=== PATIENT | male | born 1990 | race Caucasian/White ===

== ENCOUNTER 2017-02-24 22:17 | Emergency (ER) | payer SELFPAY ==
[2017-02-24] MEDS ORDERED: Diphtheria,Pertussis(Acell),Tetanus Vaccine 0.5 ML Syringe IM ONE (22:42)
[2017-02-24] MEDS ORDERED: Ketorolac 60 MG/2 ML SDV IM ONE (22:42)
--- NOTE | 2017-02-24 22:50 | EDM.PDOC ---
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 Patient states he typically gets skin lesions from exposure to different substances in his line of work. He Multiple red areas on his skin which are not warm and have no drainage or wound. He states this is typical for his job and is nothing new. He has an abrasion from his boot rubbing on his left Patient states his feet are always damp and sometimes they get frankly wet. He wears the same wet socks all day and then drive home a long distance Review of systems: As per history of present illness and below otherwise all systems reviewed and negative. Past medical history: As per history of present illness and as reviewed below otherwise noncontributory. Surgical history: As per history of present illness and as reviewed below otherwise noncontributory. Social history: No reported history of drug or alcohol abuse. Family history: As per history of present illness and as reviewed below otherwise noncontributory. Physical exam: Alert well-appearing no acute distress. Minimal soft tissue tenderness left calf with no erythema warmth fluctuance or crepitusleg medial aspect. This was concerned because his calf is slightly sore and he had a little bit of edema of his legs where his sock bilaterally indented the skin There is a small scab but no erythema warmth fluctuance or crepitus. Calf is minimally tender with soft compartments neurovascularly intact distally. Small amount of skin breakdown the dorsum of his pale foot consistent with very mild trench foot. HEENT: Normocephalic, atraumatic, pupils normal and symmetrical, supple neck, no meningismus, normal color Lungs: Normal and symmetrical chest wall excursion bilateral with no tachypnea or increased work of breathing, grossly normal chest exam Heart: No tachycardia in triage Abdomen: Normal-appearing, nondistended, no visible mass or asymmetry Pelvis: Normal-appearing Genitourinary: Deferred Rectal exam: Deferred Extremities: Atraumatic, normal use and range of motion, no visible evidence of gross neurovascular compromise Neuro: Awake, alert, oriented. Normal and appropriate mental status. Cranial nerves grossly unremarkable. Motor function normal. Nonfocal neurologic exam. Diagnostics: [Doppler left lower extremity negative for DVT] Therapeutics: [Ibuprofen given by mouth and tetanus administered] Impression: [Abrasion Trench foot Lower extremity edema Calf pain] Plan: [Signs and symptoms consistent with mild edema. No clinical evidence of CHF. Unremarkable leg with minimal soft tissue tenderness however negative for DVT by Doppler exam. Small amount of skin breakdown which is superficial without signs of cellulitis. Tetanus updated because of abrasion on left leg. Patient aware to air out feet and wear breathable socks and boots. No further workup or treatment indicated patient agrees with outpatient follow-up and strict return precautions given] Definitive disposition and diagnosis as appropriate pending reevaluation and review of above. - Related Data Allergies Allergy/AdvReac Type Severity Reaction Status Date / Time Penicillins Allergy Other Verified 02/24/17 22:31 Home Meds: Home Meds . 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 asthma but never really had a problem with it" - Infectious Disease History Infectious Disease History: Reports: Chicken Pox - Past Surgical History Respiratory Surgical History: Reports: None Social & Family History - Family History Family Medical History: Noncontributory - Tobacco Use Smoking Status *Q: Current Every Day Smoker Years of Tobacco use: 10 Packs/Tins Daily: 1 - Caffeine Use Caffeine Use: Reports: Coffee, Energy Drinks, Soda Caffeine Use Comment: 1 drink each per day - Recreational Drug Use Recreational Drug Use: No ED ROS GENERAL - Review of Systems Review Of Systems: See Below (History of present illness) ED EXAM, SKIN/RASH Exam: See Below (History of present illness) Course - Vital Signs Last Recorded V/S: Last Vital Signs Temp 36.8 C 02/24/17 22:27 Pulse 100 02/24/17 22:27 Resp 18 02/24/17 22:27 BP 149/82 H 02/24/17 22:27 Pulse Ox 97 02/24/17 22:27 - Orders/Labs/Meds Orders: Active Orders 24 hr Category Date Time Status Vaccines to be Administered [RC] PER UNIT ROUTINE Care 02/24/17 22:42 Ordered Venous Doppler Lwr Ext Lt [US] Stat Exams 02/24/17 22:40 Ordered Diphth,Pertuss(Acell),Tet Vac [Adacel] Med 02/24/17 22:42 Once 0.5 ml IM .ONCE ONE Meds: Medications Discontinued Medications Generic Name Dose Route Start Last Admin Trade Name Cyndy PRN Reason Stop Dose Admin Ketorolac Tromethamine 60 mg 02/24/17 22:42 Toradol IM 02/24/17 22:43 ONETIME ONE Departure - Departure Time of Disposition: 23:37 Disposition: Home, Self-Care 01 Condition: Good Clinical Impression: Leg pain, Lower leg edema, Maceration of skin - Discharge Information Referrals: PCP,None [Primary Care Provider] - Forms: ED Department Discharge Additional Instructions: You do not have any blood clot in your leg today. You have multiple skin abrasions from your strenuous job. You also have some skin breakdown on your left foot from the foot being moist constantly for an extended period of time inside your boot. This is called trench foot and it can range from very mild cases like your situation to severe as people suffered from during the [place] War when their feet were constantly completely wet. Wear breathable socks such as "smart wool "socks. Consider changing your socks residential through the day or after the become wet from sweats. Soon as possible after work remove your boots and let your feet air out and dry. This is a good idea to do soon as you get in your car or truck on the way home. Your tetanus has been updated and this also contains pertussis coverage. Ibuprofen and Tylenol as needed for soreness. Strive for a low-salt diet to avoid edema of the legs and elevate them above your heart when ever possible to minimize any swelling and follow-up with your Dr. tomorrow and return immediately for new severe or worsening symptoms - My Orders Last 24 Hours: My Active Orders 02/24/17 22:40 Venous Doppler Lwr Ext Lt [US] Stat 02/24/17 22:42 Vaccines to be Administered [RC] PER UNIT ROUTINE Diphth,Pertuss(Acell),Tet Vac [Adacel] 0.5 ml IM .ONCE ONE - Assessment/Plan Last 24 Hours: My Active Orders 02/24/17 22:40 Venous Doppler Lwr Ext Lt [US] Stat 02/24/17 22:42 Vaccines to be Administered [RC] PER UNIT ROUTINE Diphth,Pertuss(Acell),Tet Vac [Adacel] 0.5 ml IM .ONCE ONE
[2017-02-25 00:36] VITALS: BP 127/80
--- NOTE | 2017-02-27 10:07 | US ---
EXAM DATE: 02/24/17 PATIENT'S AGE: 26 Patient: FRANK YU Facility: [place], [place] Site . Site : 1990 Study: US Extremity Venous LT [id number]/4/2017 11:32:31 PM Ordering Physician: Akbar Anderson Final Report: INDICATION: LT LOWER LEG PAIN & SWELLING TECHNIQUE: Ultrasound venous duplex lower left extremity. Compression venous exam was performed using winters-scale, color Doppler, and spectral Doppler analysis. COMPARISON: None FINDINGS: Sonographic imaging demonstrates the left common femoral, deep femoral, superficial femoral, popliteal, posterior tibial and greater saphenous and the contralateral right common femoral veins to be fully compressible with normal color Doppler blood flow. IMPRESSION: No evidence of deep venous thrombosis within the left lower extremity. Dictated by Az Arroyo MD @ 02/24/2017 11:47:48 PM Dictated by: Az Arroyo MD @ 02/24/2017 23:47:55 (Electronic Signature) Report Signed by Proxy. ROC[facility] HOSPITALHerbie
== END 2017-02-25 00:05 | disposition home or self-care (01) ==
LOC: MW.ED 22:17
DX: S80.812A Abrasion, left lower leg, initial encounter (principal); F17.210 Nicotine dependence, cigarettes, uncomplicated; T69.022A Immersion foot, left foot, initial encounter; Z88.0 Allergy status to penicillin; J45.909 Unspecified asthma, uncomplicated; X58.XXXA Exposure to other specified factors, initial encounter; Z23 Encounter for immunization
CPT/HCPCS: 90471; 90715; 93971; 96372; 99283; J1885

== ENCOUNTER 2018-01-14 13:45 | Emergency (ER) | payer BC ==
--- NOTE | 2018-01-14 14:01 | EDM.PDOC ---
ED HPI GENERAL MEDICAL PROBLEM - General Chief Complaint: Skin Complaint Stated Complaint: LUMP Time Seen by Provider: 01/14/18 13:59 Source of Information: Reports: Patient History Limitations: Reports: No Limitations - History of Present Illness INITIAL COMMENTS - FREE TEXT/NARRATIVE: HISTORY AND PHYSICAL: []27-year-old male presenting with a "bump" on the francois of his left leg History of Present Illness: []The patient states the pain started today The patient has had a cold for the last week Denies headaches denies chest pain denies any other symptoms Review of Systems: As per history of present illness and below otherwise all systems reviewed and negative. Past medical history: As per history of present illness and as reviewed below otherwise noncontributory. Surgical history: As per history of present illness and as reviewed below otherwise noncontributory. Social history: No reported history of drug or alcohol abuse. Family history: As per history of present illness and as reviewed below otherwise noncontributory. Physical exam: Alert and oriented male answering questions appropriately in full sentences without any shortness of breath. He is nontoxic in appearance. HEENT: Atraumatic, normocehpalic, pupils reactive, negative for conjunctival pallor or scleral icterus, mucous membranes moist, throat clear, neck supple, nontender, trachea midline. Some nasal congestion noted when he is speaking Lungs: Clear to auscultation, breath sounds equal bilaterally, chest non tender. Heart: S1S2, regular, negative for clicks, rubs, or JVD. Abdomen: Soft, nondistended, nontender. Negative for masses or hepatossplenmegaly. Negative for costovertebral tenderness. Pelvis: Stable nontender. Genitourinary: Deferred. Rectal: Deferred Extremities:, negative for cords or calf pain. There is a 3 cm erythematous area with the center more reddened edema is present throughout the erythema. Neurovascular unremarkable. Neuro: Awake, alert, oriented. Cranial nerves II through XII unremarkable. Cerebellum unremarkable. Motor and sensory unremarkable throughout. Exam nonfocal. Discussed with the patient the red area looks like a spider bite. Diagnostics: [] Therapeutics: [] Impression: []Spider bite Plan: []Discharge Levaquin antibiotic 5 mg daily 7 Hydrocortisone cream 3 times a day Follow UP with your primary care provider as needed Return to emergency department as directed and discussed Definitive disposition and diagnosis as appropriate pending reevaluation and review of above. Onset: Sudden Duration: Getting Worse Location: Reports: Lower Extremity, Left Quality: Reports: Throbbing Severity: Moderate Improves with: Reports: None Worsens with: Reports: None Associated Symptoms: Reports: Other (has had a cold for the last week) left leg Pain Score (Numeric/FACES): 8 - Related Data Allergies Allergy/AdvReac Type Severity Reaction Status Date / Time Penicillins Allergy Other Verified 01/14/18 13:49 Home Meds: Home Meds Hydrocortisone [Hydrocortisone 2.5% Crm] 30 gm TOP TID #1 tube 01/14/18 [Rx] Levofloxacin [Levaquin] 500 mg PO DAILY #7 tab 01/14/18 [Rx] Past Medical History - Past Health History Medical/Surgical History: Denies Medical/Surgical History HEENT History: Reports: None Cardiovascular History: Reports: None Respiratory History: Reports: Asthma Other Respiratory History: pt states "i was born with asthma but never really had a problem with it" Gastrointestinal History: Reports: None Genitourinary History: Reports: None Musculoskeletal History: Reports: None Neurological History: Reports: None Psychiatric History: Reports: None Endocrine/Metabolic History: Reports: None Hematologic History: Reports: None Immunologic History: Reports: None Oncologic (Cancer) History: Reports: None Dermatologic History: Reports: None - Infectious Disease History Infectious Disease History: Reports: Chicken Pox - Past Surgical History Head Surgeries/Procedures: Reports: None HEENT Surgical History: Reports: None Cardiovascular Surgical History: Reports: None Respiratory Surgical History: Reports: None GI Surgical History: Reports: None Male Surgical History: Reports: None Endocrine Surgical History: Reports: None Neurological Surgical History: Reports: None Musculoskeletal Surgical History: Reports: None Oncologic Surgical History: Reports: None Dermatological Surgical History: Reports: None Social & Family History - Family History Family Medical History: Noncontributory - Tobacco Use Smoking Status *Q: Current Every Day Smoker Years of Tobacco use: 10 Packs/Tins Daily: 1 - Caffeine Use Caffeine Use: Reports: Energy Drinks Caffeine Use Comment: 1 drink each per day - Recreational Drug Use Recreational Drug Use: No ED ROS GENERAL - Review of Systems Review Of Systems: ROS reveals no pertinent complaints other than HPI. ED EXAM, SKIN/RASH Exam: See Below (see dictation) Course - Vital Signs Last Recorded V/S: Last Vital Signs Temp 37.3 C 01/14/18 13:49 Pulse 127 H 01/14/18 13:49 Resp 18 01/14/18 13:49 BP 135/85 01/14/18 13:49 Pulse Ox 98 01/14/18 13:49 Departure - Departure Time of Disposition: 14:06 Disposition: Home, Self-Care 01 Condition: Good Clinical Impression: Spider bite Qualifiers: Encounter type: initial encounter Injury intent: accidental or unintentional Qualified Code(s): T63.301A - Toxic effect of unspecified spider venom, accidental (unintentional), initial encounter Cellulitis Qualifiers: Site of cellulitis: extremity Site of cellulitis of extremity: lower extremity - Discharge Information Prescriptions: Hydrocortisone [Hydrocortisone 2.5% Crm] 30 gm TOP TID #1 tube Levofloxacin [Levaquin] 500 mg PO DAILY #7 tab Referrals: PCP,None [Primary Care Provider] - Forms: ED Department Discharge Additional Instructions: The following information is given to patients seen in the emergency department who are being discharged to home. This information is to outline your options for follow-up care. We provide all patients seen in our emergency department with a follow-up referral. The need for follow-up, as well as the timing and circumstances, are variable depending upon the specifics of your emergency department visit. If you don't have a primary care physician on staff, we will provide you with a referral. We always advise you to contact your personal physician following an emergency department visit to inform them of the circumstance of the visit and for follow-up with them and/or the need for any referrals to a consulting specialist. The emergency department will also refer you to a specialist when appropriate. This referral assures that you have the opportunity for followup care with a specialist. All of these measure are taken in an effort to provide you with optimal care, which includes your followup. Under all circumstances we always encourage you to contact your private physician who remains a resource for coordinating your care. When calling for followup care, please make the office aware that this follow-up is from your recent emergency room visit. If for any reason you are refused follow-up, please contact the [facility] emergency department at and asked to speak to the emergency department charge nurse. You have a spider bite that is causing a cellulitis to your like Antibiotic has been sent to [facility] pharmacy Hydrocortisone cream has been sent to your pharmacy Follow-up with your primary care as needed Return to the emergency room should symptoms worsen
[2018-01-14 14:17] VITALS: BP 135/85
== END 2018-01-14 14:17 | disposition home or self-care (01) ==
LOC: MW.ED 13:45
DX: T63.301A Toxic effect of unspecified spider venom, accidental (unintentional), initial encounter (principal); L03.116 Cellulitis of left lower limb; J45.909 Unspecified asthma, uncomplicated; F17.210 Nicotine dependence, cigarettes, uncomplicated; Z88.0 Allergy status to penicillin; Z79.899 Other long term (current) drug therapy
CPT/HCPCS: 99283

== ENCOUNTER 2018-01-14 21:01 | Emergency (ER) | payer BC ==
[2018-01-14] MEDS ORDERED: Ketorolac 60 MG/2 ML SDV IM ONE (22:30)
--- NOTE | 2018-01-14 22:34 | EDM.PDOC ---
ED HPI GENERAL MEDICAL PROBLEM - General Chief Complaint: Lower Extremity Injury/Pain Stated Complaint: PAIN LT LEG/DIZZY Time Seen by Provider: 01/14/18 22:26 - History of Present Illness INITIAL COMMENTS - FREE TEXT/NARRATIVE: HISTORY AND PHYSICAL: History of present illness: The patient is a healthy 27-year-old male who presents for reevaluation of a reddened area on his left anterior francois that he was seen here earlier for about 2 PM. The patient says he was seen and evaluated and was placed on antibiotics and he has taken the Levaquin he was given. He is only taken one dose of Motrin for pain and he says that the pain is worsening and he is being lightheaded and woozy and not feeling like himself. He is not having fever chills chest pain shortness of breath abdominal pain nausea or vomiting but feels very anxious about this wound. He says that the redness is getting worse and the pain is getting worse. He was not given anything for the discomfort and his only taken one dose of ibuprofen. Patient denies any new injuries and is concerned. Review of systems: As per history of present illness and below otherwise all systems reviewed and negative. Past medical history: As per history of present illness and as reviewed below otherwise noncontributory. Surgical history: As per history of present illness and as reviewed below otherwise noncontributory. Social history: No reported history of drug or alcohol abuse. Family history: As per history of present illness and as reviewed below otherwise noncontributory. Physical exam: General: Well-developed well-nourished overweight man who is nontoxic and is somewhat anxious on my evaluation. His vitals are noted by me. HEENT: Atraumatic, normocephalic, negative for conjunctival pallor or scleral icterus, mucous membranes moist, throat clear, neck supple, nontender, trachea midline. Lungs: Clear to auscultation, breath sounds equal bilaterally, chest nontender. Heart: S1S2, regular rhythm slightly tachycardic rate on my evaluation no overt murmurs Abdomen: Soft, nondistended, nontender. NABS Pelvis: Stable nontender. Genitourinary: Deferred. Rectal: Deferred. Extremities: Atraumatic no palpable bony deformities and full range of motion of all extremities. At the anterior left francois there is a hand size area of erythema with a central area of induration where the original lesion was located. There is tenderness and warmth in this area but the calf compartment is soft and there is no streaking up the leg. There are no palpable bony deformities and no crepitus. There is no drainage or fluctuance from this area. The legs are negative for cords or calf pain. Neurovascular unremarkable. Neuro: Awake, alert, oriented. Cranial nerves II through XII unremarkable. Cerebellum unremarkable. Motor and sensory unremarkable throughout. Exam nonfocal. Diagnostics: X-ray left leg to rule out gas Therapeutics: Toradol I tried to impress upon the patient that the area will get more red for the next 12-24 hours until the antibiotics start getting into his system and he is only taken one dose. I will do a quick x-ray to rule out gas although clinically there is none to reassure him and will give him a dose of Toradol here. I will send him home with some Ultram that he can use for pain along with ibuprofen. Impression: Cellulitis left leg secondary to insect bite, reevaluation Definitive disposition and diagnosis as appropriate pending reevaluation and review of above. left leg Pain Score (Numeric/FACES): 10 - Related Data Allergies Allergy/AdvReac Type Severity Reaction Status Date / Time Penicillins Allergy Other Verified 01/14/18 22:01 Home Meds: Home Meds Hydrocortisone [Hydrocortisone 2.5% Crm] 30 gm TOP TID #1 tube 01/14/18 [Rx] Levofloxacin [Levaquin] 500 mg PO DAILY #7 tab 01/14/18 [Rx] Past Medical History - Past Health History Medical/Surgical History: Denies Medical/Surgical History HEENT History: Reports: None Cardiovascular History: Reports: None Respiratory History: Reports: Asthma Other Respiratory History: pt states "i was born with asthma but never really had a problem with it" Gastrointestinal History: Reports: None Genitourinary History: Reports: None Musculoskeletal History: Reports: None Neurological History: Reports: None Psychiatric History: Reports: None Endocrine/Metabolic History: Reports: None Hematologic History: Reports: None Immunologic History: Reports: None Oncologic (Cancer) History: Reports: None Dermatologic History: Reports: None - Infectious Disease History Infectious Disease History: Reports: Chicken Pox - Past Surgical History Head Surgeries/Procedures: Reports: None HEENT Surgical History: Reports: None Cardiovascular Surgical History: Reports: None Respiratory Surgical History: Reports: None GI Surgical History: Reports: None Male Surgical History: Reports: None Endocrine Surgical History: Reports: None Neurological Surgical History: Reports: None Musculoskeletal Surgical History: Reports: None Oncologic Surgical History: Reports: None Dermatological Surgical History: Reports: None Social & Family History - Family History Family Medical History: Noncontributory - Tobacco Use Smoking Status *Q: Current Every Day Smoker Years of Tobacco use: 10 Packs/Tins Daily: 1 - Caffeine Use Caffeine Use: Reports: Energy Drinks Caffeine Use Comment: 1 drink each per day - Recreational Drug Use Recreational Drug Use: No Review of Systems - Review of Systems Review Of Systems: ROS reveals no pertinent complaints other than HPI. ED EXAM, GENERAL - Physical Exam Exam: See Below (see dictation) Course - Vital Signs Last Recorded V/S: Last Vital Signs Temp 37.3 C 01/14/18 21:58 Pulse 114 H 01/14/18 21:58 Resp 18 01/14/18 21:58 BP 140/84 01/14/18 21:58 Pulse Ox 96 01/14/18 21:58 - Orders/Labs/Meds Orders: Active Orders 24 hr Category Date Time Status Tibia Fibula Lt [CR] Stat Exams 01/14/18 22:30 Taken Meds: Medications Discontinued Medications Generic Name Dose Route Start Last Admin Trade Name Cyndy PRN Reason Stop Dose Admin Ketorolac Tromethamine 60 mg 01/14/18 22:30 01/14/18 22:49 Toradol IM 01/14/18 22:31 60 mg ONETIME ONE Administration Departure - Departure Time of Disposition: 23:50 Disposition: Home, Self-Care 01 Condition: Good Clinical Impression: Encounter for evaluation of wound Cellulitis of leg Qualifiers: Laterality: left Qualified Code(s): L03.116 - Cellulitis of left lower limb - Discharge Information Referrals: PCP,None [Primary Care Provider] - Forms: ED Department Discharge Additional Instructions: The following information is given to patients seen in the emergency department who are being discharged to home. This information is to outline your options for follow-up care. We provide all patients seen in our emergency department with a follow-up referral. The need for follow-up, as well as the timing and circumstances, are variable depending upon the specifics of your emergency department visit. If you don't have a primary care physician on staff, we will provide you with a referral. We always advise you to contact your personal physician following an emergency department visit to inform them of the circumstance of the visit and for follow-up with them and/or the need for any referrals to a consulting specialist. The emergency department will also refer you to a specialist when appropriate. This referral assures that you have the opportunity for followup care with a specialist. All of these measure are taken in an effort to provide you with optimal care, which includes your followup. Under all circumstances we always encourage you to contact your private physician who remains a resource for coordinating your care. When calling for followup care, please make the office aware that this follow-up is from your recent emergency room visit. If for any reason you are refused follow-up, please contact the [facility] emergency department at and ask to speak to the emergency department charge nurse. [facility] Primary care- Internal Medicine [place] [address] Ice and elevate the area and please continue and finish the antibiotics were given earlier today. Use [id number] ibuprofen/Aleve as directed and use the Ultram as needed for sleep. Return to ER as needed and as discussed. Call and schedule a follow-up appointment - My Orders Last 24 Hours: My Active Orders 01/14/18 22:30 Tibia Fibula Lt [CR] Stat - Assessment/Plan Last 24 Hours: My Active Orders 01/14/18 22:30 Tibia Fibula Lt [CR] Stat
[2018-01-15 02:32] VITALS: BP 114/66
--- NOTE | 2018-01-15 17:02 | CR ---
EXAM DATE: 01/14/18 PATIENT'S AGE: 27 Patient: FRANK YU Facility: [place], [place] Site . Site : 1990 Study: XRay Extremity Left tib/fib [id number]/24/2018 11:11:54 PM Ordering Physician: Cheryl Gomez Final Report: INDICATION: Leg swelling and redness TECHNIQUE: Tibia-fibula radiograph 4 views left COMPARISON: None FINDINGS: Bones: No acute fractures or aggressive bone lesions are identified. Joints: The visualized knee and ankle joints are unremarkable. No significant joint effusion is seen. Soft tissue: No soft tissue emphysema is identified. No radiopaque foreign bodies are seen. IMPRESSIONS: 1. No acute osseous injuries or abnormalities are noted. 2. No soft tissue emphysema is identified. Dictated by Jacinto Whitney MD @ 01/14/2018 11:35:27 PM Dictated by: Jacinto Whitney MD @ 01/14/2018 23:35:31 (Electronic Signature) Report Signed by Proxy. CATARINA
== END 2018-01-15 00:05 | disposition home or self-care (01) ==
LOC: MW.ED 21:01
DX: S90.862A Insect bite (nonvenomous), left foot, initial encounter (principal); L03.116 Cellulitis of left lower limb; J45.909 Unspecified asthma, uncomplicated; Z79.899 Other long term (current) drug therapy; Z88.0 Allergy status to penicillin; W57.XXXA Bitten or stung by nonvenomous insect and other nonvenomous arthropods, initial encounter
CPT/HCPCS: 73590; 96372; 99283; J1885

== ENCOUNTER 2018-01-24 08:20 | Inpatient (IN) | payer BC ==
--- NOTE | 2018-01-24 08:28 | EDM.PDOC ---
ED HPI GENERAL MEDICAL PROBLEM - General Chief Complaint: Skin Complaint Stated Complaint: INSECT BITE TO LEFT LEG Time Seen by Provider: 01/24/18 08:42 Source of Information: Reports: Patient - History of Present Illness INITIAL COMMENTS - FREE TEXT/NARRATIVE: HISTORY AND PHYSICAL: History of present illness: [Patient presents with a cellulitis on his left anterior thigh Lesion (10 days prior, he was seen in the emergency room and provided oral Levaquin, lesion is not resolved since he does have some scant drainage Wound cultures were obtained today from serosanguineous drainage no fever nausea vomiting chills sweats ] Review of systems: As per history of present illness and below otherwise all systems reviewed and negative. Past medical history: As per history of present illness and as reviewed below otherwise noncontributory. Surgical history: As per history of present illness and as reviewed below otherwise noncontributory. Social history: No reported history of drug or alcohol abuse. Family history: As per history of present illness and as reviewed below otherwise noncontributory. Physical exam: HEENT: Atraumatic, normocephalic, pupils reactive, negative for conjunctival pallor or scleral icterus, mucous membranes moist, throat clear, neck supple, nontender, trachea midline. Lungs: Clear to auscultation, breath sounds equal bilaterally, chest nontender. Heart: S1S2, regular, negative for clicks, rubs, or JVD. Abdomen: Soft, nondistended, nontender. Negative for masses or hepatosplenomegaly. Negative for costovertebral tenderness. Pelvis: Stable nontender. Genitourinary: Deferred. Rectal: Deferred. Extremities: Atraumatic, negative for cords or calf pain. Neurovascular unremarkable. Neuro: Awake, alert, oriented. Cranial nerves II through XII unremarkable. Cerebellum unremarkable. Motor and sensory unremarkable throughout. Exam nonfocal. Skin as per history of present illness otherwise unremarkable Diagnostics: [CBC CMP UA blood cultures X-ray] Therapeutics: Normal saline 1 25 mL per hour [1 g vancomycin Clindamycin 300 mg IV ] Impression: [Cellulitis] Definitive disposition and diagnosis as appropriate pending reevaluation and review of above. left francois Pain Score (Numeric/FACES): 7 - Related Data Allergies Allergy/AdvReac Type Severity Reaction Status Date / Time Penicillins Allergy Other Verified 01/24/18 08:25 Home Meds: Home Meds . [No Known Home Meds] 01/24/18 [History] Past Medical History - Past Health History Medical/Surgical History: Denies Medical/Surgical History HEENT History: Reports: None Cardiovascular History: Reports: None Respiratory History: Reports: Asthma Other Respiratory History: pt states "i was born with asthma but never really had a problem with it" Gastrointestinal History: Reports: None Genitourinary History: Reports: None Musculoskeletal History: Reports: None Neurological History: Reports: None Psychiatric History: Reports: None Endocrine/Metabolic History: Reports: None Hematologic History: Reports: None Immunologic History: Reports: None Oncologic (Cancer) History: Reports: None Dermatologic History: Reports: None - Infectious Disease History Infectious Disease History: Reports: Chicken Pox - Past Surgical History Head Surgeries/Procedures: Reports: None HEENT Surgical History: Reports: None Cardiovascular Surgical History: Reports: None Respiratory Surgical History: Reports: None GI Surgical History: Reports: None Male Surgical History: Reports: None Endocrine Surgical History: Reports: None Neurological Surgical History: Reports: None Musculoskeletal Surgical History: Reports: None Oncologic Surgical History: Reports: None Dermatological Surgical History: Reports: None Social & Family History - Family History Family Medical History: Noncontributory - Caffeine Use Caffeine Use: Reports: Energy Drinks Caffeine Use Comment: 1 drink each per day ED ROS GENERAL - Review of Systems Review Of Systems: See Below ED EXAM, SKIN/RASH Exam: See Below Course - Vital Signs Last Recorded V/S: Last Vital Signs Temp 99.3 F 01/24/18 09:15 Pulse 83 01/24/18 09:15 Resp 20 01/24/18 09:15 BP 129/78 01/24/18 09:15 Pulse Ox 97 01/24/18 09:15 - Orders/Labs/Meds Orders: Active Orders 24 hr Category Date Time Status Tibia Fibula Lt [CR] Stat Exams 01/24/18 08:42 Taken CULTURE BLOOD [BC] Stat Lab 01/24/18 08:48 Received CULTURE BLOOD [BC] Stat Lab 01/24/18 08:58 Received CULTURE WOUND [RM] Stat Lab 01/24/18 08:30 Received UA W/MICROSCOPIC [URIN] Stat Lab 01/24/18 08:38 Ordered Clindamycin Phosphate in D5W [Cleocin in D5W] 300 mg Med 01/24/18 09:15 Active Premix Bag 1 bag IV ONETIME Sodium Chloride 0.9% [Normal Saline] 1,000 ml Med 01/24/18 09:45 Active IV STAT Blood Culture x2 Reflex Set [OM.PC] Stat Oth 01/24/18 08:38 Ordered Medication Orders Clindamycin Phosphate 300 mg/ (Premix) 50 mls @ 100 mls/hr IV ONETIME TATIANNA Last Admin: 01/24/18 09:14 Dose: 100 mls/hr Sodium Chloride (Normal Saline) 1,000 mls @ 125 mls/hr IV STAT TATIANNA Labs: Laboratory Tests 01/24/18 01/24/18 Range/Units 08:48 08:48 WBC 10.10 (4.0-11.0) K/uL RBC 4.78 (4.50-5.90) M/uL Hgb 14.1 (13.0-17.0) g/dL Hct 41.7 (38.0-50.0) % MCV 87.2 (80.0-98.0) fL MCH 29.5 (27.0-32.0) pg MCHC 33.8 (31.0-37.0) g/dL RDW Std Deviation 41.6 (28.0-62.0) fl RDW Coeff of [place] 13 (11.0-15.0) % Plt Count 349 (150-400) K/uL MPV 8.70 (7.40-12.00) fL Neut % (Auto) 66.8 (48.0-80.0) % Lymph % (Auto) 22.9 (16.0-40.0) % [place] % (Auto) 7.8 (0.0-15.0) % Eos % (Auto) 2.4 (0.0-7.0) % Baso % (Auto) 0.1 (0.0-1.5) % Neut # (Auto) 6.8 H (1.4-5.7) K/uL Lymph # (Auto) 2.3 (0.6-2.4) K/uL [place] # (Auto) 0.8 (0.0-0.8) K/uL Eos # (Auto) 0.2 (0.0-0.7) K/uL Baso # (Auto) 0.0 (0.0-0.1) K/uL Nucleated RBC % 0.0 /100WBC Nucleated RBCs # 0 K/uL Sodium 138 (136-148) mmol/L Potassium 4.0 (3.5-5.1) mmol/L Chloride 103 (98-107) mmol/L Carbon Dioxide 30.6 (21.0-32.0) mmol/L BUN 10 (7.0-18.0) mg/dL Creatinine 1.1 (0.8-1.3) mg/dL Est Cr Clr Drug Dosing 94.31 mL/min Estimated GFR (MDRD) > 60.0 ml/min Glucose 101 (74-106) mg/dL Calcium 9.1 (8.5-10.1) mg/dL Total Bilirubin 0.3 (0.2-1.0) mg/dL AST 15 (15-37) IU/L ALT 44 (14-63) IU/L Alkaline Phosphatase 75 (46-116) U/L Total Protein 7.6 (6.4-8.2) g/dL Albumin 3.4 (3.4-5.0) g/dL Globulin 4.2 H (2.0-3.5) g/dL Albumin/Globulin Ratio 0.8 L (1.3-2.8) Meds: Medications Generic Name Dose Route Start Last Admin Trade Name Freq PRN Reason Stop Dose Admin Clindamycin Phosphate 300 mg/ 50 mls @ 100 mls/hr 01/24/18 09:15 01/24/18 09: 14 Premix IV 100 mls/hr ONETIME TATIANNA Administration Sodium Chloride 1,000 mls @ 125 mls/hr 01/24/18 09:45 Normal Saline IV STAT TATIANNA Discontinued Medications Generic Name Dose Route Start Last Admin Trade Name Freq PRN Reason Stop Dose Admin Clindamycin Phosphate 300 mg/ 52 mls @ 100 mls/hr 01/24/18 08:39 01/24/18 09: 02 Sodium Chloride IV 01/24/18 09:10 Not Given ONETIME ONE Sodium Chloride 1,000 mls @ 999 mls/hr 01/24/18 08:38 01/24/18 08:49 Normal Saline IV 01/24/18 09:38 999 mls/hr STAT ONE Administration Vancomycin HCl 1 gm/ Sodium 250 mls @ 250 mls/hr 01/24/18 08:38 01/24/18 09: 47 Chloride IV 01/24/18 09:37 250 mls/hr ONETIME ONE Administration Departure - Departure Time of Disposition: 09:57 Disposition: Admitted As Inpatient 66 Condition: Fair Clinical Impression: Cellulitis Qualifiers: Site of cellulitis: extremity Site of cellulitis of extremity: lower extremity - Discharge Information Referrals: PCP,None [Primary Care Provider] - Forms: ED Department Discharge - My Orders Last 24 Hours: My Active Orders 01/24/18 08:30 CULTURE WOUND [RM] Stat 01/24/18 08:38 UA W/MICROSCOPIC [URIN] Stat Blood Culture x2 Reflex Set [OM.PC] Stat 01/24/18 08:42 Tibia Fibula Lt [CR] Stat 01/24/18 08:48 CULTURE BLOOD [BC] Stat 01/24/18 08:58 CULTURE BLOOD [BC] Stat 01/24/18 09:15 Clindamycin Phosphate in D5W [Cleocin in D5W] 300 mg Premix Bag 1 bag IV ONETIME 01/24/18 09:45 Sodium Chloride 0.9% [Normal Saline] 1,000 ml IV STAT - Assessment/Plan Last 24 Hours: My Active Orders 01/24/18 08:30 CULTURE WOUND [RM] Stat 01/24/18 08:38 UA W/MICROSCOPIC [URIN] Stat Blood Culture x2 Reflex Set [OM.PC] Stat 01/24/18 08:42 Tibia Fibula Lt [CR] Stat 01/24/18 08:48 CULTURE BLOOD [BC] Stat 01/24/18 08:58 CULTURE BLOOD [BC] Stat 01/24/18 09:15 Clindamycin Phosphate in D5W [Cleocin in D5W] 300 mg Premix Bag 1 bag IV ONETIME 01/24/18 09:45 Sodium Chloride 0.9% [Normal Saline] 1,000 ml IV STAT
[2018-01-24] MEDS ORDERED: Sodium Chloride 0.9% 1,000 ML IV ONE (08:38)
[2018-01-24] MEDS ORDERED: Clindamycin Phosphate in D5W 300 MG in Premix Bag 1 BAG IV SCH ×2 (09:15)
[2018-01-24 09:17] LABS: CHLORIDE,CL 103 mmol/L (98-107); SODIUM,NA 138 mmol/L (136-148)
[2018-01-24] MEDS ORDERED: Ibuprofen 200 MG Tab PO PRN (11:15)
[2018-01-24] MEDS ORDERED: Acetaminophen 325 MG Tab PO PRN (11:15)
--- NOTE | 2018-01-24 11:21 | PCM.HP ---
H&P History of Present Illness - General Date of Service: 01/24/18 Admit Problem/Dx: Admission Diagnosis/Problem Admission Diagnosis/Problem Cellulitis - History of Present Illness Initial Comments - Free Text/Narative: 27 yo male who ten days ago developed rash on his left francois that started out as a red indurated dot. He has completed a week of Levaquin but the redness has only worsened. He started developed in the center an area of fluctuance two days ago that has clear drainage. left francois Pain Score (Numeric/FACES): 7 - Related Data Allergies/Adverse Reactions: Allergies Allergy/AdvReac Type Severity Reaction Status Date / Time Penicillins Allergy Other Verified 01/24/18 08:25 Home Medications: Home Meds . [No Known Home Meds] 01/24/18 [History] Past Medical History - Past Health History Medical/Surgical History: Denies Medical/Surgical History HEENT History: Reports: None Cardiovascular History: Reports: None Respiratory History: Reports: Asthma Other Respiratory History: pt states "i was born with asthma but never really had a problem with it" Gastrointestinal History: Reports: None Genitourinary History: Reports: None Musculoskeletal History: Reports: None Neurological History: Reports: None Psychiatric History: Reports: None Endocrine/Metabolic History: Reports: None Hematologic History: Reports: None Immunologic History: Reports: None Oncologic (Cancer) History: Reports: None Dermatologic History: Reports: None - Infectious Disease History Infectious Disease History: Reports: Chicken Pox - Past Surgical History Head Surgeries/Procedures: Reports: None HEENT Surgical History: Reports: None Cardiovascular Surgical History: Reports: None Respiratory Surgical History: Reports: None GI Surgical History: Reports: None Male Surgical History: Reports: None Endocrine Surgical History: Reports: None Neurological Surgical History: Reports: None Musculoskeletal Surgical History: Reports: None Oncologic Surgical History: Reports: None Dermatological Surgical History: Reports: None Social & Family History - Family History Family Medical History: Noncontributory - Tobacco Use Smoking Status *Q: Current Every Day Smoker Years of Tobacco use: 10 Packs/Tins Daily: 1 Used Tobacco, but Quit: No Second Hand Smoke Exposure: Yes - Caffeine Use Caffeine Use: Reports: Coffee, Energy Drinks, Soda Caffeine Use Comment: 1 drink each per day - Alcohol Use Date of Last Drink: 01/10/18 - Recreational Drug Use Recreational Drug Use: No H&P Review of Systems - Review of Systems: Review Of Systems: ROS reveals no pertinent complaints other than HPI. Exam - Exam Exam: See Below - Vital Signs Vital Signs: Last Vital Signs Temp 37.1 C 01/24/18 09:57 Pulse 90 01/24/18 09:57 Resp 20 01/24/18 09:57 BP 123/85 01/24/18 09:57 Pulse Ox 97 01/24/18 09:57 Weight: 105.732 kg - Exam General: Alert, Oriented HEENT: Mucosa Moist & [place], Posterior Pharynx Clear Neck: Supple Lungs: Clear to Auscultation, Normal Respiratory Effort Cardiovascular: Regular Rate, Regular Rhythm GI/Abdominal Exam: Normal Bowel Sounds, Soft, Non-Tender Extremities: Other (7 by 10 cm area of erythema on left francois with 3 by 3 cm of fluctuance with serosangenous drainage) Neurological: No: Focal Deficit - Patient Data Lab Results Last 24 hrs: Laboratory Results - last 24 hr 01/24/18 01/24/18 Range/Units 08:48 08:48 WBC 10.10 (4.0-11.0) K/uL RBC 4.78 (4.50-5.90) M/uL Hgb 14.1 (13.0-17.0) g/dL Hct 41.7 (38.0-50.0) % MCV 87.2 (80.0-98.0) fL MCH 29.5 (27.0-32.0) pg MCHC 33.8 (31.0-37.0) g/dL RDW Std Deviation 41.6 (28.0-62.0) fl RDW Coeff of Alka 13 (11.0-15.0) % Plt Count 349 (150-400) K/uL MPV 8.70 (7.40-12.00) fL Neut % (Auto) 66.8 (48.0-80.0) % Lymph % (Auto) 22.9 (16.0-40.0) % Wirt % (Auto) 7.8 (0.0-15.0) % Eos % (Auto) 2.4 (0.0-7.0) % Baso % (Auto) 0.1 (0.0-1.5) % Neut # (Auto) 6.8 H (1.4-5.7) K/uL Lymph # (Auto) 2.3 (0.6-2.4) K/uL Wirt # (Auto) 0.8 (0.0-0.8) K/uL Eos # (Auto) 0.2 (0.0-0.7) K/uL Baso # (Auto) 0.0 (0.0-0.1) K/uL Nucleated RBC % 0.0 /100WBC Nucleated RBCs # 0 K/uL Sodium 138 (136-148) mmol/L Potassium 4.0 (3.5-5.1) mmol/L Chloride 103 (98-107) mmol/L Carbon Dioxide 30.6 (21.0-32.0) mmol/L BUN 10 (7.0-18.0) mg/dL Creatinine 1.1 (0.8-1.3) mg/dL Est Cr Clr Drug Dosing 94.31 mL/min Estimated GFR (MDRD) > 60.0 ml/min Glucose 101 (74-106) mg/dL Calcium 9.1 (8.5-10.1) mg/dL Total Bilirubin 0.3 (0.2-1.0) mg/dL AST 15 (15-37) IU/L ALT 44 (14-63) IU/L Alkaline Phosphatase 75 (46-116) U/L Total Protein 7.6 (6.4-8.2) g/dL Albumin 3.4 (3.4-5.0) g/dL Globulin 4.2 H (2.0-3.5) g/dL Albumin/Globulin Ratio 0.8 L (1.3-2.8) Result Diagrams: 01/24/18 08:48 01/24/18 08:48 Problem List Initiated/Reviewed/Updated: Yes Orders Last 24hrs: Active Orders 24 hr Category Date Time Status Admission Status [Patient Status] [ADT] Stat ADT 01/24/18 09:58 Active Oxygen Therapy [RC] PRN Care 01/24/18 11:16 Ordered Up ad Martha [RC] ASDIRECTED Care 01/24/18 11:15 Ordered VTE/DVT Education [RC] PER UNIT ROUTINE Care 01/24/18 11:16 Ordered Vital Signs [RC] Q4H Care 01/24/18 11:16 Ordered Regular Diet [DIET] Diet 01/24/18 Breakfast Ordered Tibia Fibula Lt [CR] Stat Exams 01/24/18 08:42 Taken BASIC METABOLIC PANEL,BMP [CHEM] AM Lab 01/25/18 05:11 Ordered CBC WITH AUTO DIFF [HEME] AM Lab 01/25/18 05:11 Ordered CULTURE BLOOD [BC] Stat Lab 01/24/18 08:48 Received CULTURE BLOOD [BC] Stat Lab 01/24/18 08:58 Received CULTURE WOUND [RM] Stat Lab 01/24/18 08:30 Received UA W/MICROSCOPIC [URIN] Stat Lab 01/24/18 08:38 Ordered Acetaminophen [Tylenol] Med 01/24/18 11:15 Ordered 650 mg PO Q4H PRN Clindamycin Phosphate [Cleocin] 300 mg Med 01/24/18 11:15 Ordered Sodium Chloride 0.9% [Normal Saline] 50 ml IV Q6H Clindamycin Phosphate in D5W [Cleocin in D5W] 300 mg Med 01/24/18 09:15 Active Premix Bag 1 bag IV ONETIME Heparin Sodium Med 01/24/18 11:15 Ordered 5,000 units SUBCUT Q8H Ibuprofen [Motrin] Med 01/24/18 11:15 Ordered 200 mg PO Q6H PRN Sodium Chloride 0.9% [Normal Saline] 1,000 ml Med 01/24/18 09:45 Active IV STAT Vancomycin Pharmacy to Dose [Pharmacy to Dose - Med 01/24/18 11:15 Ordered Vancomycin] 1 dose .XX ASDIRECTED Blood Culture x2 Reflex Set [OM.PC] Stat Oth 01/24/18 08:38 Ordered Sequential Compression Device [OM.PC] Per Unit Routine Oth 01/24/18 11:16 Ordered Resuscitation Status Routine Resus Stat 01/24/18 11:15 Ordered Medication Orders Clindamycin Phosphate 300 mg/ (Premix) 50 mls @ 100 mls/hr IV ONETIME TATIANNA Last Admin: 01/24/18 09:14 Dose: 100 mls/hr Sodium Chloride (Normal Saline) 1,000 mls @ 125 mls/hr IV STAT [facility]AT[facility]NA Clindamycin Phosphate 300 mg/ (Sodium Chloride) 52 mls @ 100 mls/hr IV Q6H [facility] Vancomycin HCl (Pharmacy To Dose - Vancomycin) 1 dose .XX ASDIRECTED [facility] Assessment/Plan Comment:: 27 yo male admitted with lower leg cellulitis with possible abscess that has failed outpatient management. We will treat with vancomycin and clindamycin. Dr. Harmon has been consulted regarding possible abscess.
[2018-01-24] MEDS: Sodium Chloride 0.9% 1,000 ML IV SCH ×2 (11:29→22:39)
[2018-01-24] MEDS: Heparin Sodium 5,000 Units/ML Vial SUBCUT SCH ×2 (11:38→18:30)
--- NOTE | 2018-01-24 13:48 | PCM.SN ---
- Free Text/Narrative Note: pt seen, chart reviewed; L leg infection, possible subcut abscess; would benefit from bedside i/d; rb dw pt re bleeding/more infection/postop course w packing and drsg change; pt concurred and proceed; cx dictated [id number]
[2018-01-24] MEDS ORDERED: Lidocaine 1% with EPINEPHrine 1:100,000 20 ML MDV INJECT ONE (13:56)
[2018-01-24] MEDS ORDERED: Morphine 4 MG/ML Syringe IVPUSH ONE (13:58)
[2018-01-24] MEDS ORDERED: Morphine 4 MG/ML Syringe ONE (14:01)
[2018-01-24] MEDS ORDERED: Acetaminophen/oxyCODONE 325-5 MG Tab PO PRN (14:42)
--- NOTE | 2018-01-24 14:53 | CONS ---
DATE OF CONSULTATION: DATE OF : 1990 PRIMARY CARE PHYSICIAN: None PCP Consult was called, and the patient was seen shortly after. CONCERNING QUESTION: Left knee infection. HISTORY OF PRESENT ILLNESS: The patient is a 27-year-old gentleman, and he had some kind of insect bite 10 days ago and developed cellulitis. He has since been managed in the emergency room and does not seem to get better. Now admitted for IV antibiotic. Surgery was consulted for further management. The patient was remarked. Right now, the pain is about 6/10. Denied fever, chills, or diarrhea. Denied prior episode. Denied any purulent drainage but has some clear liquid drainage. PAST MEDICAL HISTORY: Significant for no diabetes, AK, CVA, and hypertension. SOCIAL HISTORY: The patient has been smoking tobacco and chewing tobacco and some alcohol. ALLERGIES: The patient is allergic to PCN. MEDICATIONS: Please refer to nursing for details. PAST SURGICAL HISTORY: No prior surgical history. PHYSICAL EXAMINATION: GENERAL: A very pleasant nice gentleman, lying in bed, in no acute distress. HEENT: Normocephalic and atraumatic. Sclerae anicteric. LUNGS: Clear to auscultation. HEART: Regular rate and rhythm. ABDOMEN: Soft, nondistended. No pulsating tenderness in the midline abdominal structure. EXTREMITIES: A rash/cellulitis about one palm distant below the knee on the anterior francois, there is puffiness and erythema. SKIN: Intact. No expressed material, but it is tender to touch. LABORATORY DATA: White count 10. IMPRESSION: Subcutaneous abscess versus blister with cellulitis and pain. PLAN: The patient may benefit to have a bedside procedure for incision and drainage. The risks and benefits were discussed with the patient, and the patient agreed to proceed and depends on the thing draining out. If it is an abscess, the patient will need to pack the wound every other day for about 7 to 10 days. We will give the patient pain medication, a Tylenol. MANDI / DENISHA /[id number] CATARINA
[2018-01-24] MEDS: Clindamycin Phosphate in D5W 300 MG in Premix Bag 1 BAG IV SCH ×4 (15:39→20:37)
[2018-01-25] MEDS: Clindamycin Phosphate in D5W 300 MG in Premix Bag 1 BAG IV SCH ×8 (02:18→21:34)
[2018-01-25] MEDS: Heparin Sodium 5,000 Units/ML Vial SUBCUT SCH ×3 (02:21→18:31)
[2018-01-25 06:08] LABS: CHLORIDE,CL 110 mmol/L (98-107); SODIUM,NA 141 mmol/L (136-148)
--- NOTE | 2018-01-25 08:27 | PCM.PN ---
- General Info Date of Service: 01/25/18 - Review of Systems Systems Review Comment:: erythema improving - Patient Data Vitals - Most Recent: Last Vital Signs Temp 36.8 C 01/25/18 07:00 Pulse 65 01/25/18 07:00 Resp 17 01/25/18 07:00 BP 127/57 L 01/25/18 07:00 Pulse Ox 95 01/25/18 07:00 Weight - Most Recent: 105.732 kg I&O - Last 24 Hours: Intake & Output 01/24/18 01/25/18 01/25/18 22:59 06:59 14:59 Intake Total 1881 1200 Output Total 1425 1430 Balance 456 -230 Lab Results Last 24 Hours: Laboratory Results - last 24 hr 01/24/18 01/24/18 01/24/18 Range/Units 08:48 08:48 10:50 WBC 10.10 (4.0-11.0) K/uL RBC 4.78 (4.50-5.90) M/uL Hgb 14.1 (13.0-17.0) g/dL Hct 41.7 (38.0-50.0) % MCV 87.2 (80.0-98.0) fL MCH 29.5 (27.0-32.0) pg MCHC 33.8 (31.0-37.0) g/dL RDW Std Deviation 41.6 (28.0-62.0) fl RDW Coeff of Alka 13 (11.0-15.0) % Plt Count 349 (150-400) K/uL MPV 8.70 (7.40-12.00) fL Neut % (Auto) 66.8 (48.0-80.0) % Lymph % (Auto) 22.9 (16.0-40.0) % [place] % (Auto) 7.8 (0.0-15.0) % Eos % (Auto) 2.4 (0.0-7.0) % Baso % (Auto) 0.1 (0.0-1.5) % Neut # (Auto) 6.8 H (1.4-5.7) K/uL Lymph # (Auto) 2.3 (0.6-2.4) K/uL [place] # (Auto) 0.8 (0.0-0.8) K/uL Eos # (Auto) 0.2 (0.0-0.7) K/uL Baso # (Auto) 0.0 (0.0-0.1) K/uL Nucleated RBC % 0.0 /100WBC Nucleated RBCs # 0 K/uL Sodium 138 (136-148) mmol/L Potassium 4.0 (3.5-5.1) mmol/L Chloride 103 (98-107) mmol/L Carbon Dioxide 30.6 (21.0-32.0) mmol/L BUN 10 (7.0-18.0) mg/dL Creatinine 1.1 (0.8-1.3) mg/dL Est Cr Clr Drug Dosing 94.31 mL/min Estimated GFR (MDRD) > 60.0 ml/min Glucose 101 (74-106) mg/dL Calcium 9.1 (8.5-10.1) mg/dL Total Bilirubin 0.3 (0.2-1.0) mg/dL AST 15 (15-37) IU/L ALT 44 (14-63) IU/L Alkaline Phosphatase 75 (46-116) U/L Total Protein 7.6 (6.4-8.2) g/dL Albumin 3.4 (3.4-5.0) g/dL Globulin 4.2 H (2.0-3.5) g/dL Albumin/Globulin Ratio 0.8 L (1.3-2.8) Urine Color YELLOW Urine Appearance CLEAR Urine pH 6.0 (5.0-8.0) Ur Specific Lyman <= 1.005 (1.001-1.035) Urine Protein NEGATIVE (NEGATIVE) mg/dL Urine Glucose (UA) NEGATIVE (NEGATIVE) mg/dL Urine Ketones NEGATIVE (NEGATIVE) mg/dL Urine Occult Blood NEGATIVE (NEGATIVE) Urine Nitrite NEGATIVE (NEGATIVE) Urine Bilirubin NEGATIVE (NEGATIVE) Urine Urobilinogen 0.2 (<2.0) EU/dL Ur Leukocyte Esterase NEGATIVE (NEGATIVE) Urine RBC 0-1 (0-2/HPF) Urine WBC 0-1 (0-5/HPF) Ur Epithelial Cells RARE (NONE-FEW) Urine Bacteria RARE (NEGATIVE) 01/25/18 01/25/18 Range/Units 05:10 05:10 WBC 7.42 (4.0-11.0) K/uL RBC 4.33 L (4.50-5.90) M/uL Hgb 12.7 L (13.0-17.0) g/dL Hct 38.5 (38.0-50.0) % MCV 88.9 (80.0-98.0) fL MCH 29.3 (27.0-32.0) pg MCHC 33.0 (31.0-37.0) g/dL RDW Std Deviation 42.8 (28.0-62.0) fl RDW Coeff of Alka 13 (11.0-15.0) % Plt Count 314 (150-400) K/uL MPV 8.90 (7.40-12.00) fL Neut % (Auto) 54.7 (48.0-80.0) % Lymph % (Auto) 33.8 (16.0-40.0) % [place] % (Auto) 8.2 (0.0-15.0) % Eos % (Auto) 3.2 (0.0-7.0) % Baso % (Auto) 0.1 (0.0-1.5) % Neut # (Auto) 4.1 (1.4-5.7) K/uL Lymph # (Auto) 2.5 H (0.6-2.4) K/uL [place] # (Auto) 0.6 (0.0-0.8) K/uL Eos # (Auto) 0.2 (0.0-0.7) K/uL Baso # (Auto) 0.0 (0.0-0.1) K/uL Nucleated RBC % 0.0 /100WBC Nucleated RBCs # 0 K/uL Sodium 141 (136-148) mmol/L Potassium 4.1 (3.5-5.1) mmol/L Chloride 110 H (98-107) mmol/L Carbon Dioxide 26.6 (21.0-32.0) mmol/L BUN 8 (7.0-18.0) mg/dL Creatinine 1.0 (0.8-1.3) mg/dL Est Cr Clr Drug Dosing 103.74 mL/min Estimated GFR (MDRD) > 60.0 ml/min Glucose 97 (74-106) mg/dL Calcium 8.6 (8.5-10.1) mg/dL Total Bilirubin (0.2-1.0) mg/dL AST (15-37) IU/L ALT (14-63) IU/L Alkaline Phosphatase (46-116) U/L Total Protein (6.4-8.2) g/dL Albumin (3.4-5.0) g/dL Globulin (2.0-3.5) g/dL Albumin/Globulin Ratio (1.3-2.8) Urine Color Urine Appearance Urine pH (5.0-8.0) Ur Specific [place]yman (1.001-1.035) Urine Protein (NEGATIVE) mg/dL Urine Glucose (UA) (NEGATIVE) mg/dL Urine Ketones (NEGATIVE) mg/dL Urine Occult Blood (NEGATIVE) Urine Nitrite (NEGATIVE) Urine Bilirubin (NEGATIVE) Urine Urobilinogen (<2.0) EU/dL Ur Leukocyte Esterase (NEGATIVE) Urine RBC (0-2/HPF) Urine WBC (0-5/HPF) Ur Epithelial Cells (NONE-FEW) Urine Bacteria (NEGATIVE) Carlos Enrique Results Last 24 Hours: Microbiology 01/24/18 14:25 Gram Stain - Preliminary Drainage - Wound-Deep Med Orders - Current: Current Medications Acetaminophen (Tylenol) 650 mg PO Q4H PRN PRN Reason: Pain (Mild 1-3)/fever Heparin Sodium (Porcine) (Heparin Sodium) 5,000 units SUBCUT Q8H [facility] Last Admin: 01/25/18 02:21 Dose: 5,000 units Sodium Chloride (Normal Saline) 1,000 mls @ 125 mls/hr IV STAT [facility] Last Admin: 01/24/18 22:39 Dose: 125 mls/hr Clindamycin Phosphate 300 mg/ (Premix) 50 mls @ 100 mls/hr IV Q6H [facility] Last Infusion: 01/25/18 02:50 Dose: Infused Vancomycin HCl 1,500 mg/ (Sodium Chloride) 500 mls @ 250 mls/hr IV Q12H [facility] Last Infusion: 01/25/18 05:10 Dose: Infused Ibuprofen (Motrin) 200 mg PO Q6H PRN PRN Reason: Pain (mild 1-3) Last Admin: 01/25/18 02:18 Dose: 200 mg Oxycodone/Acetaminophen (Percocet 325-5 Mg) 1 tab PO Q6H PRN PRN Reason: Pain Vancomycin HCl (Pharmacy To Dose - Vancomycin) 1 dose .XX ASDIRECTED [facility]ATIANNA Discontinued Medications Clindamycin Phosphate 300 mg/ (Sodium Chloride) 52 mls @ 100 mls/hr IV ONETIME ONE Stop: 01/24/18 09:10 Last Admin: 01/24/18 09:02 Dose: Not Given Sodium Chloride (Normal Saline) 1,000 mls @ 999 mls/hr IV STAT ONE Stop: 01/24/18 09:38 Last Admin: 01/24/18 08:49 Dose: 999 mls/hr Vancomycin HCl 1 gm/ Sodium (Chloride) 250 mls @ 250 mls/hr IV ONETIME ONE Stop: 01/24/18 09:37 Last Admin: 01/24/18 09:47 Dose: 250 mls/hr Clindamycin Phosphate 300 mg/ (Premix) 50 mls @ 100 mls/hr IV ONETIME [facility]NA Last Admin: 01/24/18 09:14 Dose: 100 mls/hr Lidocaine/Epinephrine (Xylocaine 1% With Epinephrine 1:100,000) 20 ml INJECT ONETIME ONE Stop: 01/24/18 13:57 Last Admin: 01/24/18 14:14 Dose: 20 ml Morphine Sulfate (Morphine) 4 mg IVPUSH STAT ONE Stop: 01/24/18 13:59 Last Admin: 01/24/18 14:04 Dose: 4 mg Morphine Sulfate (Morphine) Confirm Administered Dose 4 mg .ROUTE .STK-MED ONE Stop: 01/24/18 14:02 Last Admin: 01/24/18 15:38 Dose: Not Given - Exam General: Alert, Oriented Neck: Supple Lungs: Clear to Auscultation, Normal Respiratory Effort GI/Abdominal Exam: Normal Bowel Sounds, Soft, Non-Tender Extremities: Other (erythema improving on right francois, no purulance comming for I&D wound) - Problem List Review Problem List Initiated/Reviewed/Updated: Yes - My Orders Last 24 Hours: My Active Orders 01/24/18 11:15 Acetaminophen [Tylenol] 650 mg PO Q4H PRN Heparin Sodium 5,000 units SUBCUT Q8H Ibuprofen [Motrin] 200 mg PO Q6H PRN Vancomycin Pharmacy to Dose [Pharmacy to Dose - Vancomycin] 1 dose .XX ASDIRECTED Resuscitation Status Routine 01/24/18 11:16 Oxygen Therapy [RC] PRN Vital Signs [RC] Q4H Sequential Compression Device [OM.PC] Per Unit Routine 01/24/18 12:16 Notify Provider Consults [RC] ASDIRECTED Consult to Physician [CONS] Routine 01/24/18 15:00 Clindamycin Phosphate in D5W [Cleocin in D5W] 300 mg Premix Bag 1 bag IV Q6H 01/24/18 16:00 Vancomycin 1,500 mg Sodium Chloride 0.9% [Normal Saline] 500 ml IV Q12H 01/26/18 03:00 VANCOMYCIN TROUGH [CHEM] Routine - Plan Plan:: 27 yo male admitted with lower leg cellulitis that failed outpatient management. He is s/p I&D of abscess. Will continue vancomycin and clindamycin.
[2018-01-25] MEDS: Sodium Chloride 0.9% 1,000 ML IV SCH ×2 (09:52→19:54)
--- NOTE | 2018-01-25 10:01 | CR ---
EXAM DATE: 01/24/18 PATIENT'S AGE: 27 Patient: FRANK YU Facility: [place], [place] Site . Site : 1990 Study: XRay Extremity Left [id number]/[id number] 9:12:42 AM Ordering Physician: Tomeka Shabazz Final Report: INDICATION: Pain, swelling, cellulitis. TECHNIQUE: Two-view. FINDINGS: No fracture is seen of the left tibia or fibula. There is soft tissue swelling noted of the left calf. No periosteal changes are noted of the left tibia or fibula. IMPRESSION: Soft tissue swelling of the left calf. The visualized left tibia and fibula demonstrate no fracture or periosteal change. Dictated by Dixon Perez MD @ 01/24/2018 9:20:16 AM Dictated by: Dixon Perez MD @ 01/24/2018 09:20:24 (Electronic Signature) Report Signed by Proxy. CATARINA
--- NOTE | 2018-01-25 11:29 | PCM.OPNOTE ---
- General Post-Op/Procedure Note Date of Surgery/Procedure: 01/24/18 Operative Procedure(s): i/d L leg infection Findings: no flank pus, but 2 large blood clots came out, with clear fluid; wound packed; [id number] Pre Op Diagnosis: l leg infection Post-Op Diagnosis: Same Anesthesia Technique: Local Primary Surgeon: Howard Villegas Pathology: gs, c+s Complications: None Condition: Fair Free Text/Narrative:: Intake & Output 01/24/18 01/25/18 01/25/18 22:59 06:59 14:59 Intake Total 1881 1200 1049 Output Total 1425 1430 Balance 456 230 1049
--- NOTE | 2018-01-25 12:21 | PCM.SURGPN ---
- General Info Date of Service: 01/25/18 Functional Status: Reports: Pain Controlled (wound looked good, drsg dried; cellulitis regressing) - Patient Data Vitals - Most Recent: Last Vital Signs Temp 98.4 F 01/25/18 10:23 Pulse 70 01/25/18 10:23 Resp 16 01/25/18 10:23 BP 119/75 01/25/18 10:23 Pulse Ox 96 01/25/18 10:23 Weight - Most Recent: 233 lb 1.6 oz I&O - Last 24 Hours: Intake & Output 01/24/18 01/25/18 01/25/18 22:59 06:59 14:59 Intake Total 1881 1200 1049 Output Total 1425 1430 Balance 456 -230 1049 Lab Results Last 24 Hrs: Laboratory Results - last 24 hr 01/25/18 01/25/18 Range/Units 05:10 05:10 WBC 7.42 (4.0-11.0) K/uL RBC 4.33 L (4.50-5.90) M/uL Hgb 12.7 L (13.0-17.0) g/dL Hct 38.5 (38.0-50.0) % MCV 88.9 (80.0-98.0) fL MCH 29.3 (27.0-32.0) pg MCHC 33.0 (31.0-37.0) g/dL RDW Std Deviation 42.8 (28.0-62.0) fl RDW Coeff of Alka 13 (11.0-15.0) % Plt Count 314 (150-400) K/uL MPV 8.90 (7.40-12.00) fL Neut % (Auto) 54.7 (48.0-80.0) % Lymph % (Auto) 33.8 (16.0-40.0) % Kings % (Auto) 8.2 (0.0-15.0) % Eos % (Auto) 3.2 (0.0-7.0) % Baso % (Auto) 0.1 (0.0-1.5) % Neut # (Auto) 4.1 (1.4-5.7) K/uL Lymph # (Auto) 2.5 H (0.6-2.4) K/uL Kings # (Auto) 0.6 (0.0-0.8) K/uL Eos # (Auto) 0.2 (0.0-0.7) K/uL Baso # (Auto) 0.0 (0.0-0.1) K/uL Nucleated RBC % 0.0 /100WBC Nucleated RBCs # 0 K/uL Sodium 141 (136-148) mmol/L Potassium 4.1 (3.5-5.1) mmol/L Chloride 110 H (98-107) mmol/L Carbon Dioxide 26.6 (21.0-32.0) mmol/L BUN 8 (7.0-18.0) mg/dL Creatinine 1.0 (0.8-1.3) mg/dL Est Cr Clr Drug Dosing 103.74 mL/min Estimated GFR (MDRD) > 60.0 ml/min Glucose 97 (74-106) mg/dL Calcium 8.6 (8.5-10.1) mg/dL Carlos Enrique Results Last 24 Hrs: Microbiology 01/24/18 08:30 Wound Culture - Preliminary Leg, Left 01/24/18 14:25 Wound Culture - Preliminary Leg, Left 01/24/18 14:25 Gram Stain - Final Drainage - Wound-Deep 01/24/18 08:58 Aerobic Blood Culture - Preliminary Blood - Venous - Lab Draw NO GROWTH AFTER 1 DAY Anaerobic Blood Culture - Preliminary NO GROWTH AFTER 1 DAY 01/24/18 08:48 Aerobic Blood Culture - Preliminary Blood - Venous NO GROWTH AFTER 1 DAY Anaerobic Blood Culture - Preliminary NO GROWTH AFTER 1 DAY Med Orders - Current: Current Medications Acetaminophen (Tylenol) 650 mg PO Q4H PRN PRN Reason: Pain (Mild 1-3)/fever Heparin Sodium (Porcine) (Heparin Sodium) 5,000 units SUBCUT Q8H [facility] Last Admin: 01/25/18 10:43 Dose: 5,000 units Sodium Chloride (Normal Saline) 1,000 mls @ 125 mls/hr IV STAT [facility] Last Admin: 01/25/18 09:52 Dose: 125 mls/hr Clindamycin Phosphate 300 mg/ (Premix) 50 mls @ 100 mls/hr IV Q6H [facility] Last Admin: 01/25/18 08:33 Dose: 100 mls/hr Vancomycin HCl 1,500 mg/ (Sodium Chloride) 500 mls @ 250 mls/hr IV Q12H [facility] Last Infusion: 01/25/18 05:10 Dose: Infused Ibuprofen (Motrin) 200 mg PO Q6H PRN PRN Reason: Pain (mild 1-3) Last Admin: 01/25/18 02:18 Dose: 200 mg Oxycodone/Acetaminophen (Percocet 325-5 Mg) 1 tab PO Q6H PRN PRN Reason: Pain Vancomycin HCl (Pharmacy To Dose - Vancomycin) 1 dose .XX ASDIRECTED [facility], [facility] Discontinued Medications Clindamycin Phosphate 300 mg/ (Sodium Chloride) 52 mls @ 100 mls/hr IV ONETIME ONE Stop: 01/24/18 09:10 Last Admin: 01/24/18 09:02 Dose: Not Given Sodium Chloride (Normal Saline) 1,000 mls @ 999 mls/hr IV STAT ONE Stop: 01/24/18 09:38 Last Admin: 01/24/18 08:49 Dose: 999 mls/hr Vancomycin HCl 1 gm/ Sodium (Chloride) 250 mls @ 250 mls/hr IV ONETIME ONE Stop: 01/24/18 09:37 Last Admin: 01/24/18 09:47 Dose: 250 mls/hr Clindamycin Phosphate 300 mg/ (Premix) 50 mls @ 100 mls/hr IV ONETIME [facility] Last Admin: 01/24/18 09:14 Dose: 100 mls/hr Lidocaine/Epinephrine (Xylocaine 1% With Epinephrine 1:100,000) 20 ml INJECT ONETIME ONE Stop: 01/24/18 13:57 Last Admin: 01/24/18 14:14 Dose: 20 ml Morphine Sulfate (Morphine) 4 mg IVPUSH STAT ONE Stop: 01/24/18 13:59 Last Admin: 01/24/18 14:04 Dose: 4 mg Morphine Sulfate (Morphine) Confirm Administered Dose 4 mg .ROUTE .STK-MED ONE Stop: 01/24/18 14:02 Last Admin: 01/24/18 15:38 Dose: Not Given - Exam Wound/Incisions: Dressing Dry and Intact, No Drainage (cellulitis regressing) - Problem List Review Problem List Initiated/Reviewed/Updated: Yes - My Orders Last 24 Hours: Active Orders 24 hr Category Date Time Status Communication Order [RC] ROUTINE Care 01/24/18 14:43 Active Notify Provider Consults [RC] ASDIRECTED Care 01/24/18 12:16 Active Consult to Physician [CONS] Routine Cons 01/24/18 12:16 Active CULTURE WOUND [RM] Routine Lab 01/24/18 14:25 Results VANCOMYCIN TROUGH [CHEM] Routine Lab 01/26/18 03:00 Ordered Acetaminophen/oxyCODONE [Percocet 325-5 MG] Med 01/24/18 14:42 Active 1 tab PO Q6H PRN Clindamycin Phosphate in D5W [Cleocin in D5W] 300 mg Med 01/24/18 15:00 Active Premix Bag 1 bag IV Q6H Vancomycin 1,500 mg Med 01/24/18 16:00 Active Sodium Chloride 0.9% [Normal Saline] 500 ml IV Q12H Medication Orders Acetaminophen (Tylenol) 650 mg PO Q4H PRN PRN Reason: Pain (Mild 1-3)/fever Heparin Sodium (Porcine) (Heparin Sodium) 5,000 units SUBCUT Q8H [facility] Last Admin: 01/25/18 10:43 Dose: 5,000 units Admin: 01/25/18 02:21 Dose: 5,000 units Admin: 01/24/18 18:30 Dose: 5,000 units Admin: 01/24/18 11:38 Dose: 5,000 units Sodium Chloride (Normal Saline) 1,000 mls @ 125 mls/hr IV STAT [facility] Last Admin: 01/25/18 09:52 Dose: 125 mls/hr Infusion: 01/25/18 06:39 Dose: 125 mls/hr Admin: 01/24/18 22:39 Dose: 125 mls/hr Infusion: 01/24/18 19:29 Dose: 125 mls/hr Admin: 01/24/18 11:29 Dose: 125 mls/hr Clindamycin Phosphate 300 mg/ (Premix) 50 mls @ 100 mls/hr IV Q6H [facility] Last Admin: 01/25/18 08:33 Dose: 100 mls/hr Infusion: 01/25/18 02:50 Dose: 100 mls/hr Admin: 01/25/18 02:18 Dose: 100 mls/hr Infusion: 01/24/18 21:07 Dose: 100 mls/hr Admin: 01/24/18 20:37 Dose: 100 mls/hr Infusion: 01/24/18 16:09 Dose: 100 mls/hr Admin: 01/24/18 15:39 Dose: 100 mls/hr Vancomycin HCl 1,500 mg/ (Sodium Chloride) 500 mls @ 250 mls/hr IV Q12H [facility] Last Infusion: 01/25/18 05:10 Dose: 250 mls/hr Admin: 01/25/18 03:07 Dose: 250 mls/hr Infusion: 01/24/18 18:26 Dose: 250 mls/hr Admin: 01/24/18 16:26 Dose: 250 mls/hr Ibuprofen (Motrin) 200 mg PO Q6H PRN PRN Reason: Pain (mild 1-3) Last Admin: 01/25/18 02:18 Dose: 200 mg Oxycodone/Acetaminophen (Percocet 325-5 Mg) 1 tab PO Q6H PRN PRN Reason: Pain Vancomycin HCl (Pharmacy To Dose - Vancomycin) 1 dose .XX ASDIRECTED [facility] - Assessment Assessment (Free Text/Narrative):: responded well to treatment, abx and i/d; ok to dc packing follow w drsg change during weekend, by pt or go ED; fu w me Monday for wound check; pt would benefit from po clindamycin 300 mg po TID X 1 wk, and pain meds; thanks for the consult and care for this nice gentleman - Plan Plan (Free Text/Narrative):: responded well to treatment, abx and i/d; ok to dc packing follow w drsg change during weekend, by pt or go ED; fu w me Monday for wound check; pt would benefit from po clindamycin 300 mg po TID X 1 wk, and pain meds; thanks for the consult and care for this nice gentleman
--- NOTE | 2018-01-25 12:51 | OR ---
SURGEON: Howard Villegas MD DATE OF PROCEDURE: 01/24/2018 PREOPERATIVE DIAGNOSIS: Left leg infection. POSTOPERATIVE DIAGNOSIS: Left leg infection. PROCEDURE PERFORMED: Incision and drainage. COMPLICATIONS: None. FINDINGS: Two large blood clot came out with clear fluid and does not seem to have any sadie pus and wound packed. PROCEDURE IN DETAIL: Procedure performed at bedside and informed consent was obtained, and time-out was being called. The patient was identified, procedure identified. The left leg was prepped and draped in sterile fashion. Using 1% lidocaine with epi, the area was infiltrated with anesthetic agent and using a 15 blade, an incision was made in anterior medial aspect is about to 1 to 2 palm distant from the knee down on the anterior surface of the left leg and resulting two large blood clot, came out. No pus. Clear fluid, and the area was irrigated and packed with 1/8th inch of plain gauze and dressed up. The patient tolerated the procedure well. There were no intraoperative complications. Dr. Villegas was present throughout the whole procedure. MANDI / DENISHA /[id number] CATARINA
[2018-01-26] MEDS: Heparin Sodium 5,000 Units/ML Vial SUBCUT SCH ×2 (02:46→10:24)
[2018-01-26] MEDS: Clindamycin Phosphate in D5W 300 MG in Premix Bag 1 BAG IV SCH ×4 (02:47→08:01)
[2018-01-26] MEDS: Sodium Chloride 0.9% 1,000 ML IV SCH (05:59)
[2018-01-26 07:55] VITALS: BP 121/69
--- NOTE | 2018-01-26 10:46 | PCM.DCSUM1 ---
Discharge Summary - Discharge Data Discharge Date: 01/26/18 Discharge Disposition: Home, Self-Care 01 Condition: Good - Patient Summary/Data Operative Procedure(s) Performed: i/d L leg infection Consults: Consultations 01/24/18 12:16 Consult to Physician [CONS] Routine Hospital Course: 27 yo male admitted for left lower leg cellulitis and abscess that failed outpatient treatment of levaquin. He was treated with IV clindamycin and vancomycin. Dr. Villegas performed I&D of left francois abscess. He had improvement of erythema and swelling after drainage. He grew out Strep Dysgalact on wound cultures. He was discharged home with oral clindamycin and is to follow up with Dr. Villegas next Monday. - Patient Instructions Diet: Regular Diet as Tolerated - Discharge Plan Prescriptions/Med Rec: Clindamycin HCl 300 mg PO Q6H #20 capsule Home Medications: Home Meds Clindamycin HCl 300 mg PO Q6H #20 capsule 01/26/18 [Rx] Referrals: Howard Villegas MD [Physician] - 01/29/18 11:00 am - Patient Data Vitals - Most Recent: Last Vital Signs Temp 36.4 C 01/26/18 07:54 Pulse 73 01/26/18 07:54 Resp 19 01/26/18 07:54 BP 121/69 01/26/18 07:54 Pulse Ox 97 01/26/18 07:54 Weight - Most Recent: 105.732 kg I&O - Last 24 hours: Intake & Output 01/25/18 01/26/18 01/26/18 22:59 06:59 14:59 Intake Total 2599 2241 50 Output Total 2150 Balance 449 2241 50 Lab Results - Last 24 hrs: Laboratory Results - last 24 hr 01/26/18 Range/Units 03:03 Vancomycin Trough 8.8 (5.0-10.0) ug/mL JACQUELIN Results - Last 24 hrs: Microbiology 01/24/18 08:30 Wound Culture - Final Leg, Left Strep Dysgalact Ss Dysgalacti Skin Tia 01/24/18 14:25 Wound Culture - Final Leg, Left Strep Dysgalact Ss Dysgalacti 01/24/18 08:58 Aerobic Blood Culture - Preliminary Blood - Venous - Lab Draw NO GROWTH AFTER 2 DAYS Anaerobic Blood Culture - Preliminary NO GROWTH AFTER 2 DAYS 01/24/18 08:48 Aerobic Blood Culture - Preliminary Blood - Venous NO GROWTH AFTER 2 DAYS Anaerobic Blood Culture - Preliminary NO GROWTH AFTER 2 DAYS 01/24/18 14:25 Gram Stain - Final Drainage - Wound-Deep Med Orders - Current: Current Medications Acetaminophen (Tylenol) 650 mg PO Q4H PRN PRN Reason: Pain (Mild 1-3)/fever Heparin Sodium (Porcine) (Heparin Sodium) 5,000 units SUBCUT Q8H [facility] Last Admin: 01/26/18 10:24 Dose: 5,000 units Sodium Chloride (Normal Saline) 1,000 mls @ 125 mls/hr IV STAT [facility] Last Admin: 01/26/18 05:59 Dose: 125 mls/hr Clindamycin Phosphate 300 mg/ (Premix) 50 mls @ 100 mls/hr IV Q6H [facility] Last Admin: 01/26/18 08:01 Dose: 100 mls/hr Vancomycin HCl 1,500 mg/ (Sodium Chloride) 500 mls @ 250 mls/hr IV Q8H [facility] Ibuprofen (Motrin) 200 mg PO Q6H PRN PRN Reason: Pain (mild 1-3) Last Admin: 01/25/18 02:18 Dose: 200 mg Oxycodone/Acetaminophen (Percocet 325-5 Mg) 1 tab PO Q6H PRN PRN Reason: Pain Last Admin: 01/26/18 00:20 Dose: 1 tab Vancomycin HCl (Pharmacy To Dose - Vancomycin) 1 dose .XX ASDIRECTED [facility] Discontinued Medications Clindamycin Phosphate 300 mg/ (Sodium Chloride) 52 mls @ 100 mls/hr IV ONETIME ONE Stop: 01/24/18 09:10 Last Admin: 01/24/18 09:02 Dose: Not Given Sodium Chloride (Normal Saline) 1,000 mls @ 999 mls/hr IV STAT ONE Stop: 01/24/18 09:38 Last Admin: 01/24/18 08:49 Dose: 999 mls/hr Vancomycin HCl 1 gm/ Sodium (Chloride) 250 mls @ 250 mls/hr IV ONETIME ONE Stop: 01/24/18 09:37 Last Admin: 01/24/18 09:47 Dose: 250 mls/hr Clindamycin Phosphate 300 mg/ (Premix) 50 mls @ 100 mls/hr IV ONETIME [facility] Last Admin: 01/24/18 09:14 Dose: 100 mls/hr Vancomycin HCl 1,500 mg/ (Sodium Chloride) 500 mls @ 250 mls/hr IV Q12H [facility] Stop: 01/26/18 06:00 Last Admin: 01/26/18 04:01 Dose: 250 mls/hr Vancomycin HCl 1,500 mg/ (Sodium Chloride) 500 mls @ 250 mls/hr IV Q12H [facility] Lidocaine/Epinephrine (Xylocaine 1% With Epinephrine 1:100,000) 20 ml INJECT ONETIME ONE Stop: 01/24/18 13:57 Last Admin: 01/24/18 14:14 Dose: 20 ml Morphine Sulfate (Morphine) 4 mg IVPUSH STAT ONE Stop: 01/24/18 13:59 Last Admin: 01/24/18 14:04 Dose: 4 mg Morphine Sulfate (Morphine) Confirm Administered Dose 4 mg .ROUTE .STK-MED ONE Stop: 01/24/18 14:02 Last Admin: 01/24/18 15:38 Dose: Not Given
== END 2018-01-26 11:45 | disposition home or self-care (01) | DRG 383 ==
LOC: MW.ED 08:20 → MW.MS 09:58
PROVIDERS: ADMIT Internal Medicine; ATTEND Internal Medicine
PROC: 0Y9J0ZZ Drainage of Left Lower Leg, Open Approach (ICD-10-PCS; principal; 2018-01-24)
DX: L03.116 Cellulitis of left lower limb (principal); F17.200 Nicotine dependence, unspecified, uncomplicated; Z88.0 Allergy status to penicillin
CPT/HCPCS: 36415; 73590-26-LT; 73590-LT; 80048; 80053; 80202; 81001; 85025; 87040; 87070; 87077; 87186; 87205; 96365; 96367; 99284-25; A9270-GY; J1644; J2270; J3370; J7040; J7050